=== PATIENT | female | born 1955 | race Asian ===

== ENCOUNTER 2016-11-14 06:57 | Inpatient (IN) | payer SELFPAY ==
[~2016-11-14] VITALS: Ht 157.5 cm; Wt 60.8 kg
[2016-11-14] MEDS ORDERED: SODIUM CHLORIDE 0.9% 1,000 ML IV ONE (08:30)
[2016-11-14] MEDS ORDERED: ONDANSETRON HCL 4MG/2ML VIAL IV STA (08:30)
[2016-11-14] MEDS ORDERED: MORPHINE SULFATE 4 MG/ML CPJ (NOT FOR IM USE) IV STA (08:30)
[2016-11-14 09:09] LABS: EOSINOPHILS % 0.4 % (0.0-5.0); HEMOGLOBIN. 13.9 g/dL (12.0-16.0); LYMPHOCYTES % 9.1 % (20.0-50.0); MEAN CORPUSCULAR HEMOGLOBIN 27.9 pg (28.0-32.0); MEAN CORPUSCULAR VOLUME 84.2 fL (81.0-99.0); MEAN PLATELET VOLUME 6.5 fl (7.4-10.4); MONOCYTES % 2.8 % (2.0-8.0); NEUTROPHILS % 86.7 % (40.0-76.0); PLATELET 388 x1000/uL (130-400); RED BLOOD CELL COUNT 4.99 mill/uL (4.2-5.4); RED CELL DISTRIBUTION WIDTH 13.1 % (11.6-14.6)
[2016-11-14 09:15] LABS: PARTIAL THROMBOPLASTIN TIME 26.3 sec (23.4-31.0)
[2016-11-14 09:22] LABS: CARBON DIOXIDE 29 mEq/L (21-32); CHLORIDE 99 mEq/L (98-107)
[2016-11-14] MEDS ORDERED: PIPERACILLIN/TAZ 3.375G PREMIX 50 ML IV ONE (10:30)
[2016-11-14] MEDS ORDERED: PIPERACILLIN/TAZOBACTAM 3.375GM/50ML PREMIX IV ONE (10:30)
[2016-11-14] MEDS ORDERED: ONDANSETRON HCL 4MG/2ML VIAL IV ONE (11:30)
[2016-11-14] MEDS ORDERED: MORPHINE SULFATE 4 MG/ML CPJ (NOT FOR IM USE) IV ONE (11:30)
[2016-11-14 16:00] VITALS: BP 124/66
[2016-11-14] MEDS ORDERED: AMLO5TAB4 PO (16:23)
[2016-11-14] MEDS ORDERED: LOSA50TA20 PO (16:23)
[2016-11-14] MEDS ORDERED: HYDROMORPHONE HCL/PF 2MG/ML CPJ IM PRN (16:30)
[2016-11-14] MEDS ORDERED: ONDANSETRON HCL 4MG/2ML VIAL IV PRN (16:30)
[2016-11-14 16:34] VITALS: BP 124/66
[2016-11-14] MEDS: AMLODIPINE 5MG TABLET PO SCH (18:38)
[2016-11-14] MEDS ORDERED: HYDROMORPHONE HCL/PF 2MG/ML CPJ IV PRN (19:30)
[2016-11-14 20:00] VITALS: BP 114/64
[2016-11-15] VITALS: BP 116/64
[2016-11-15 04:00] VITALS: BP 118/66
[2016-11-15 08:00] VITALS: BP 126/79
[2016-11-15] MEDS: LOSARTAN POTASSIUM 50 MG TABLET PO SCH (10:25)
[2016-11-15 12:00] VITALS: BP 139/103
[2016-11-15 16:00] VITALS: BP 141/87
[2016-11-15 20:00] VITALS: BP 109/56
[2016-11-15] MEDS: AMLODIPINE 5MG TABLET PO SCH (20:08)
[2016-11-16] VITALS: BP 105/57
[2016-11-16 04:00] VITALS: BP 111/58
[2016-11-16 07:32] LABS: HEMATOCRIT 40.9 % (36.0-48.0); HEMOGLOBIN 13.6 g/dL (12.0-16.0); MEAN CORPUSCULAR HEMOGLOBIN 28.3 pg (28.0-32.0); MEAN CORPUSCULAR VOLUME 84.9 fL (81.0-99.0); PLATELET 367 x1000/uL (130-400); RED BLOOD CELL COUNT 4.81 mill/uL (4.2-5.4); RED CELL DISTRIBUTION WIDTH 13.2 % (11.6-14.6)
[2016-11-16 08:00] VITALS: BP 135/58
[2016-11-16 08:02] LABS: CARBON DIOXIDE 31 mEq/L (21-32); CHLORIDE 104 mEq/L (98-107)
[2016-11-16] MEDS: LOSARTAN POTASSIUM 50 MG TABLET PO SCH (09:30)
[2016-11-16 12:00] VITALS: BP 132/57
== END 2016-11-16 14:25 | disposition home or self-care (01) ==
LOC: ER 07:24 → ENRESERV 13:56 → 6WST 15:44
PROVIDERS: ADMIT Hospitalist; ATTEND Hospitalist
DX: K80.10 Calculus of gallbladder with chronic cholecystitis without obstruction (principal); E87.5 Hyperkalemia; I10 Essential (primary) hypertension; E87.6 Hypokalemia; R74.0 Nonspecific elevation of levels of transaminase and lactic acid dehydrogenase [LDH]
CPT/HCPCS: 36415; 71010; 74181; 76705; 80053; 83690; 85025; 85027; 85610; 85730; 87040; 93005; 96361; 96365; 96375; 96376; 99285; J2270; J2405; J2543; J7030

== ENCOUNTER 2016-12-03 13:01 | Emergency (ER) | payer SELFPAY ==
[~2016-12-03] VITALS: Ht 157.5 cm; Wt 60.0 kg
[~2016-12-03 13:01] MED LIST: AMLO5TAB4 PO; LOSA50TA20 PO
[2016-12-03 17:52] VITALS: BP 131/65
== END 2016-12-03 23:00 | disposition home or self-care (01) ==
LOC: ER 13:37
DX: L03.115 Cellulitis of right lower limb (principal); L30.9 Dermatitis, unspecified; L30.2 Cutaneous autosensitization
CPT/HCPCS: 99283

== ENCOUNTER 2017-09-15 19:09 | Inpatient (IN) | payer OTHER ==
[~2017-09-15] VITALS: Ht 152.4 cm; Wt 62.3 kg
[2017-09-15 21:11] LABS: BASOPHILS % 1.2 % (0.0-2.0); EOSINOPHILS % 2.1 % (0.0-5.0); HEMATOCRIT. 39.4 % (36.0-48.0); LYMPHOCYTES % 28.8 % (20.0-50.0); MEAN CORPUSCULAR HEMOGLOBIN 28.2 pg (28.0-32.0); MEAN CORPUSCULAR VOLUME 85.2 fL (81.0-99.0); MEAN PLATELET VOLUME 6.7 fl (7.4-10.4); NEUTROPHILS % 61.9 % (40.0-76.0); PLATELET 379 x1000/uL (130-400); RED BLOOD CELL COUNT 4.62 mill/uL (4.2-5.4); RED CELL DISTRIBUTION WIDTH 12.8 % (11.6-14.6)
[2017-09-15 21:15] LABS: CHLORIDE 108 mEq/L (98-107)
[2017-09-15 21:16] LABS: PROTHROMBIN TIME 10.1 sec (9.4-11.6)
[2017-09-15] MEDS ORDERED: IOHEXOL-350 100 ML BOTTLE ONE (23:00)
[2017-09-16] VITALS (12 sets, daily range): BP systolic 120–139; BP diastolic 73–90
[2017-09-16] MEDS ORDERED: ASPIRIN 81MG TABLET PO ONE (00:30)
[2017-09-16] MEDS ORDERED: ENOXAPARIN 100MG/ML SYR SUBCUT ONE (00:30)
[2017-09-16] MEDS ORDERED: IPRATROPIUM/ALBUTEROL 0.5-3(2.5)MG/3ML NEB INH PRN (01:45)
[2017-09-16] MEDS ORDERED: MAGNESIUM/ALUMINUM HYDROXIDE/SIMETHICONE 30ML UDC PO PRN (01:45)
[2017-09-16] MEDS ORDERED: GUAIFENESIN 200MG/10ML SUGAR FREE UDC PO PRN (01:45)
[2017-09-16] MEDS ORDERED: ONDANSETRON HCL 4MG/2ML VIAL IV PRN (01:45)
[2017-09-16] MEDS ORDERED: HYDROCODONE/ACETAMINOPHEN 5/325MG TABLET PO PRN (01:45)
[2017-09-16] MEDS ORDERED: ACETAMINOPHEN 650MG/20.3ML UDC GT PRN (01:45)
[2017-09-16] MEDS ORDERED: DOCUSATE SODIUM 100MG CAPSULE PO PRN (01:45)
[2017-09-16] MEDS ORDERED: CLONIDINE 0.1MG TABLET PO PRN (01:45)
[2017-09-16] MEDS ORDERED: DIPHENHYDRAMINE 50MG/ML VIAL IV PRN (01:45)
[2017-09-16] MEDS ORDERED: ACETAMINOPHEN 650MG SUPP PR PRN (01:45)
[2017-09-16] MEDS ORDERED: ACETAMINOPHEN 325MG TABLET PO PRN ×2 (01:45→15:15)
[2017-09-16] MEDS ORDERED: NA PHOS,M-B/NA PHOS,DI-BA ENEMA 118ML PR PRN (01:45)
[2017-09-16] MEDS ORDERED: MORPHINE SULFATE 4 MG/ML CPJ (NOT FOR IM USE) IV PRN (01:45)
[2017-09-16] MEDS ORDERED: SODIUM CHLORIDE 0.9% 1,000 ML IV SCH (05:00)
[2017-09-16] MEDS: SODIUM CHLORIDE 0.9% INJ 3ML FLUSH IVF SCH ×3 (05:38→23:00)
[2017-09-16 06:49] LABS: CLARITY URINE CLEAR (CLEAR); COLOR URINE YELLOW (YELLOW); KETONES URINE NEGATIVE (NEGATIVE); LEUKOCYTE ESTERASE URINE NEGATIVE (NEGATIVE); NITRITE URINE NEGATIVE (NEGATIVE); OCCULT BLOOD URINE NEGATIVE (NEGATIVE); PROTEIN URINE NEGATIVE (NEGATIVE); SPECIFIC GRAVITY URINE 1.064 (1.005-1.030)
[2017-09-16 07:07] LABS: *AMPHETAMINES SCREEN URINE NEGATIVE (NEGATIVE); *BARBITURATES SCREEN URINE NEGATIVE (NEGATIVE); *BENZODIAZEPINES SCREEN URINE NEGATIVE (NEGATIVE); *COCAINE SCREEN URINE NEGATIVE (NEGATIVE)
[2017-09-16 07:09] LABS: CANNABINOID URINE SCREEN NEGATIVE (NEGATIVE); METHADONE URINE SCREEN NEGATIVE (NEGATIVE); OPIATES URINE SCREEN NEGATIVE (NEGATIVE); PHENCYCLIDINE URINE SCREEN NEGATIVE (NEGATIVE)
[2017-09-16] MEDS: ASPIRIN 325MG EC TABLET PO SCH (08:13)
[2017-09-16] MEDS ORDERED: IODIXANOL 320MG/ML 100 ML BOTTLE IV ONE ×2 (11:18→14:20)
[2017-09-16] MEDS ORDERED: LIDOCAINE HCL 1% 20ML VIAL (Pyxis) INJ ONE (11:18)
[2017-09-16 11:49] LABS: BASOPHILS % 0.2 % (0.0-2.0); EOSINOPHILS % 2.9 % (0.0-5.0); HEMATOCRIT. 43.3 % (36.0-48.0); HEMOGLOBIN. 14.4 g/dL (12.0-16.0); LYMPHOCYTES % 33.4 % (20.0-50.0); MEAN CORPUSCULAR HEMOGLOBIN 28.2 pg (28.0-32.0); MEAN PLATELET VOLUME 6.6 fl (7.4-10.4); MONOCYTES % 5.6 % (2.0-8.0); NEUTROPHILS % 57.9 % (40.0-76.0); PLATELET 384 x1000/uL (130-400); RED BLOOD CELL COUNT 5.09 mill/uL (4.2-5.4); RED CELL DISTRIBUTION WIDTH 13.1 % (11.6-14.6)
[2017-09-16 11:57] LABS: PROTHROMBIN TIME 10.5 sec (9.4-11.6)
[2017-09-16 11:59] LABS: CHLORIDE 107 mEq/L (98-107)
[2017-09-16] MEDS ORDERED: ENOXAPARIN 60MG/0.6ML SYR SUBCUT SCH (13:00)
[2017-09-16] MEDS ORDERED: MIDAZOLAM HCL 2 MG/2 ML VIAL ONE ×2 (13:41→14:29)
[2017-09-16] MEDS ORDERED: FENTANYL CITRATE/PF 50MCG/ML 2ML VIAL ONE (13:42)
[2017-09-16] MEDS ORDERED: IOHEXOL-300 100 ML BOTTLE ONE (14:20)
[2017-09-16] MEDS ORDERED: ATROPINE SULFATE 1MG/10ML SYR IV PRN (15:15)
[2017-09-16] MEDS ORDERED: HEPARIN SODIUM 1,000 UNIT/1ML VIAL IV ONE (15:16)
[2017-09-16] MEDS ORDERED: NICARDIPINE 100MCG/ML 10ML VIAL (CATH LAB) IV ONE (15:18)
[2017-09-16] MEDS ORDERED: NITROGLYCERIN 50MCG/ML 10ML VIAL (CATH LAB) IV ONE (15:18)
[2017-09-16] MEDS ORDERED: CLOPIDOGREL 75MG TABLET ONE (15:24)
[2017-09-16 19:29] LABS: CREATINE KINASE MB FRACTION 3.2 ng/mL (0.5-3.6)
[2017-09-16] MEDS ORDERED: ATORVASTATIN CALCIUM 10MG TABLET PO SCH ×2 (21:00)
[2017-09-16] MEDS: SODIUM CHL 0.45% + KCL 20MEQ/L 1,000 ML IV SCH (21:48)
[2017-09-16] MEDS: METOPROLOL TARTRATE 50MG TABLET PO SCH (21:50)
[2017-09-17] VITALS (9 sets, daily range): BP systolic 99–138; BP diastolic 68–88
[2017-09-17] MEDS: SODIUM CHL 0.45% + KCL 20MEQ/L 1,000 ML IV SCH (04:05)
[2017-09-17 06:31] LABS: BASOPHILS % 0.7 % (0.0-2.0); EOSINOPHILS % 3.7 % (0.0-5.0); HEMATOCRIT. 39.1 % (36.0-48.0); HEMOGLOBIN. 13.2 g/dL (12.0-16.0); LYMPHOCYTES % 24.9 % (20.0-50.0); MEAN CORPUSCULAR HEMOGLOBIN 28.3 pg (28.0-32.0); MEAN CORPUSCULAR VOLUME 84.1 fL (81.0-99.0); MEAN PLATELET VOLUME 6.8 fl (7.4-10.4); NEUTROPHILS % 63.7 % (40.0-76.0); PLATELET 360 x1000/uL (130-400); RED BLOOD CELL COUNT 4.65 mill/uL (4.2-5.4); RED CELL DISTRIBUTION WIDTH 13.4 % (11.6-14.6)
[2017-09-17] MEDS: SODIUM CHLORIDE 0.9% INJ 3ML FLUSH IVF SCH (06:31)
[2017-09-17 06:49] LABS: CHLORIDE 106 mEq/L (98-107)
[2017-09-17 07:08] LABS: LDL CHOLESTEROL 178 mg/dL (5-100)
[2017-09-17 07:09] LABS: HDL CHOLESTEROL 41 mg/dL (40-59)
[2017-09-17] MEDS ORDERED: CLOPIDOGREL 75MG TABLET PO SCH (09:00)
[2017-09-17] MEDS: ASPIRIN 325MG EC TABLET PO SCH (09:20)
[2017-09-17] MEDS: METOPROLOL TARTRATE 50MG TABLET PO SCH (09:21)
== END 2017-09-17 12:00 | disposition home or self-care (01) | DRG 247 ==
LOC: ER 19:09 → 3WST 22:35 → EDBEDREQSVC 22:39 → EDBEDREQTM 22:39 → EDBEDREQ 22:39 → ENRESERV 09-16 02:26 → 3WST 09-16 04:30
PROVIDERS: ADMIT Family Medicine; ATTEND Family Medicine
PROC: 4A023N7 Measurement of Cardiac Sampling and Pressure, Left Heart, Percutaneous Approach (ICD-10-PCS; principal; 2017-09-16)
PROC: 027034Z Dilation of Coronary Artery, One Artery with Drug-eluting Intraluminal Device, Percutaneous Approach (ICD-10-PCS; 2017-09-16)
PROC: B2111ZZ Fluoroscopy of Multiple Coronary Arteries using Low Osmolar Contrast (ICD-10-PCS; 2017-09-16)
PROC: B2151ZZ Fluoroscopy of Left Heart using Low Osmolar Contrast (ICD-10-PCS; 2017-09-16)
DX: I21.4 Non-ST elevation (NSTEMI) myocardial infarction (principal); I10 Essential (primary) hypertension; E78.5 Hyperlipidemia, unspecified; I20.0 Unstable angina; Z79.899 Other long term (current) drug therapy; Z82.5 Family history of asthma and other chronic lower respiratory diseases; Z82.49 Family history of ischemic heart disease and other diseases of the circulatory system
CPT/HCPCS: 36415; 71045; 71275; 80048; 80053; 80061; 80305; 81003; 82553; 83036; 83880; 84443; 84484; 85025; 85347; 85610; 92928; 93005; 93306; 93454; 96372; 99291; C1725; C1760; C1769; C1874; C1887; C1893; J1644; J1650; J2250; J3010; J3480; J3490; J7030; Q9967

== ENCOUNTER 2017-09-25 23:00 | Inpatient (IN) | payer OTHER ==
[~2017-09-25] VITALS: Ht 157.5 cm; Wt 62.3 kg
[2017-09-25] MEDS ORDERED: ASPIRIN 81MG TABLET PO ONE (23:30)
[2017-09-25 23:43] LABS: CHLORIDE 109 mEq/L (98-107)
[2017-09-25 23:44] LABS: EOSINOPHILS % 6.6 % (0.0-5.0); HEMOGLOBIN. 12.3 g/dL (12.0-16.0); LYMPHOCYTES % 31.8 % (20.0-50.0); MEAN CORPUSCULAR HEMOGLOBIN 28.3 pg (28.0-32.0); MEAN CORPUSCULAR VOLUME 84.7 fL (81.0-99.0); MEAN PLATELET VOLUME 6.5 fl (7.4-10.4); MONOCYTES % 6.2 % (2.0-8.0); NEUTROPHILS % 54.4 % (40.0-76.0); PARTIAL THROMBOPLASTIN TIME 28.5 sec (23.4-31.0); PLATELET 406 x1000/uL (130-400); RED BLOOD CELL COUNT 4.36 mill/uL (4.2-5.4); RED CELL DISTRIBUTION WIDTH 13.1 % (11.6-14.6)
[2017-09-25 23:54] LABS: CREATINE KINASE MB FRACTION 0.8 ng/mL (0.5-3.6)
[2017-09-26] MEDS ORDERED: LORAZEPAM 2MG/ML CPJ IV ONE (02:30)
[2017-09-26] MEDS ORDERED: LORAZEPAM 2MG/ML CPJ IV SCH (02:35)
[2017-09-26] MEDS ORDERED: ENOXAPARIN 60MG/0.6ML SYR SUBCUT SCH (04:00)
[2017-09-26] MEDS ORDERED: IOHEXOL-350 100 ML BOTTLE ONE (04:02)
[2017-09-26 04:38] VITALS: BP 132/72
[2017-09-26] MEDS ORDERED: MORPHINE SULFATE 4 MG/ML CPJ (NOT FOR IM USE) IV PRN (06:45)
[2017-09-26 08:00] VITALS: BP 127/74
[2017-09-26] MEDS: METOPROLOL TARTRATE 50MG TABLET PO SCH ×2 (08:39→20:26)
[2017-09-26] MEDS: CLOPIDOGREL 75MG TABLET PO SCH ×2 (08:40→10:15)
[2017-09-26] MEDS ORDERED: ASPIRIN 325MG EC TABLET PO SCH (09:00)
[2017-09-26] MEDS ORDERED: CLOP75TA16 PO (11:28)
[2017-09-26] MEDS ORDERED: ASPI-986 PO (11:28)
[2017-09-26] MEDS ORDERED: METO-539 PO (11:28)
[2017-09-26 12:00] VITALS: BP 128/73
[2017-09-26 16:00] VITALS: BP 128/74
[2017-09-26 20:00] VITALS: BP 125/76
[2017-09-26] MEDS: ATORVASTATIN CALCIUM 40MG TABLET PO SCH (21:03)
[2017-09-26 23:17] LABS: CLARITY URINE CLEAR (CLEAR); COLOR URINE YELLOW (YELLOW); KETONES URINE NEGATIVE (NEGATIVE); LEUKOCYTE ESTERASE URINE TRACE (NEGATIVE); NITRITE URINE NEGATIVE (NEGATIVE); OCCULT BLOOD URINE NEGATIVE (NEGATIVE); PROTEIN URINE NEGATIVE (NEGATIVE); SPECIFIC GRAVITY URINE 1.009 (1.005-1.030); UROBILINOGEN URINE 0.2 E.U./dL (0.2-1.0)
[2017-09-27] VITALS: BP 134/89
[2017-09-27 04:00] VITALS: BP 111/71
[2017-09-27 06:36] LABS: BASOPHILS % 0.8 % (0.0-2.0); CHLORIDE 108 mEq/L (98-107); EOSINOPHILS % 5.7 % (0.0-5.0); HEMATOCRIT. 37.4 % (36.0-48.0); HEMOGLOBIN. 12.8 g/dL (12.0-16.0); LYMPHOCYTES % 22.9 % (20.0-50.0); MEAN CORPUSCULAR HEMOGLOBIN 28.9 pg (28.0-32.0); MEAN CORPUSCULAR VOLUME 84.3 fL (81.0-99.0); MEAN PLATELET VOLUME 6.7 fl (7.4-10.4); MONOCYTES % 5.8 % (2.0-8.0); NEUTROPHILS % 64.8 % (40.0-76.0); PLATELET 389 x1000/uL (130-400); RED BLOOD CELL COUNT 4.43 mill/uL (4.2-5.4); RED CELL DISTRIBUTION WIDTH 13.2 % (11.6-14.6)
[2017-09-27] MEDS: ASPIRIN 81MG EC TABLET PO SCH (09:26)
[2017-09-27] MEDS: CLOPIDOGREL 75MG TABLET PO SCH (09:26)
[2017-09-27 09:40] VITALS: BP 125/74
[2017-09-27] MEDS: METOPROLOL TARTRATE 50MG TABLET PO SCH ×2 (10:04→20:39)
[2017-09-27 12:00] VITALS: BP 145/76
[2017-09-27 16:00] VITALS: BP 140/74
[2017-09-27 20:00] VITALS: BP 151/83
[2017-09-27] MEDS: ATORVASTATIN CALCIUM 40MG TABLET PO SCH (20:39)
[2017-09-28] VITALS (21 sets, daily range): BP systolic 100–145; BP diastolic 59–81
[2017-09-28 08:17] LABS: BASOPHILS % 0.9 % (0.0-2.0); EOSINOPHILS % 5.5 % (0.0-5.0); HEMATOCRIT. 41.7 % (36.0-48.0); HEMOGLOBIN. 13.8 g/dL (12.0-16.0); LYMPHOCYTES % 25.9 % (20.0-50.0); MEAN CORPUSCULAR HEMOGLOBIN 28.1 pg (28.0-32.0); MEAN CORPUSCULAR VOLUME 85.1 fL (81.0-99.0); MEAN PLATELET VOLUME 6.8 fl (7.4-10.4); MONOCYTES % 5.1 % (2.0-8.0); NEUTROPHILS % 62.6 % (40.0-76.0); PLATELET 450 x1000/uL (130-400); RED BLOOD CELL COUNT 4.91 mill/uL (4.2-5.4); RED CELL DISTRIBUTION WIDTH 12.7 % (11.6-14.6)
[2017-09-28] MEDS: CLOPIDOGREL 75MG TABLET PO SCH (09:00)
[2017-09-28] MEDS: ASPIRIN 81MG EC TABLET PO SCH (09:00)
[2017-09-28] MEDS ORDERED: LIDOCAINE HCL 1% 20ML VIAL (Pyxis) INJ ONE (09:44)
[2017-09-28] MEDS ORDERED: IODIXANOL 320MG/ML 100 ML BOTTLE IV ONE ×2 (09:44→11:18)
[2017-09-28] MEDS: METOPROLOL TARTRATE 50MG TABLET PO SCH ×2 (09:54→21:00)
[2017-09-28 10:03] LABS: CHLORIDE 107 mEq/L (98-107)
[2017-09-28] MEDS ORDERED: MIDAZOLAM HCL 2 MG/2 ML VIAL ONE (10:20)
[2017-09-28] MEDS ORDERED: FENTANYL CITRATE/PF 50MCG/ML 2ML VIAL ONE (10:21)
[2017-09-28] MEDS ORDERED: IOHEXOL-300 100 ML BOTTLE ONE (10:49)
[2017-09-28] MEDS ORDERED: CLOPIDOGREL 75MG TABLET ONE (10:50)
[2017-09-28] MEDS ORDERED: ASPIRIN 325MG TABLET ONE (11:28)
[2017-09-28] MEDS ORDERED: ONDANSETRON HCL 4MG/2ML VIAL IV PRN (11:45)
[2017-09-28] MEDS ORDERED: ACETAMINOPHEN 325MG TABLET PO PRN (11:45)
[2017-09-28] MEDS ORDERED: ATROPINE SULFATE 1MG/10ML SYR IV PRN (11:45)
[2017-09-28] MEDS ORDERED: SODIUM CHLORIDE 0.45% 1,000 ML IV ONE (13:45)
[2017-09-28] MEDS ORDERED: HEPARIN SODIUM 1,000 UNIT/1ML VIAL IV ONE (14:20)
[2017-09-28] MEDS ORDERED: NITROGLYCERIN 50MCG/ML 10ML VIAL (CATH LAB) IV ONE (14:24)
[2017-09-28] MEDS ORDERED: NICARDIPINE 100MCG/ML 10ML VIAL (CATH LAB) IV ONE (14:24)
[2017-09-28] MEDS: ATORVASTATIN CALCIUM 40MG TABLET PO SCH (21:25)
[2017-09-29] VITALS: BP 98/66
[2017-09-29 02:00] VITALS: BP 100/63
[2017-09-29 04:00] VITALS: BP 125/89
[2017-09-29 06:00] VITALS: BP 152/92
[2017-09-29 08:01] LABS: BASOPHILS % 0.6 % (0.0-2.0); EOSINOPHILS % 5.5 % (0.0-5.0); HEMATOCRIT. 40.4 % (36.0-48.0); HEMOGLOBIN. 13.3 g/dL (12.0-16.0); LYMPHOCYTES % 20.8 % (20.0-50.0); MEAN CORPUSCULAR HEMOGLOBIN 28.2 pg (28.0-32.0); MEAN CORPUSCULAR VOLUME 85.5 fL (81.0-99.0); MEAN PLATELET VOLUME 6.9 fl (7.4-10.4); MONOCYTES % 4.9 % (2.0-8.0); NEUTROPHILS % 68.2 % (40.0-76.0); PLATELET 434 x1000/uL (130-400); RED BLOOD CELL COUNT 4.72 mill/uL (4.2-5.4)
[2017-09-29] MEDS: METOPROLOL TARTRATE 50MG TABLET PO SCH (08:55)
[2017-09-29] MEDS ORDERED: CLOPIDOGREL 75MG TABLET PO SCH (09:00)
[2017-09-29] MEDS ORDERED: ASPIRIN 325MG TABLET PO SCH (09:00)
[2017-09-29 09:59] VITALS: BP 142/84
== END 2017-09-29 10:52 | disposition home or self-care (01) | DRG 247 ==
LOC: EDBEDREQ 09-26 01:42 → EDBEDREQTM 09-26 01:42 → ENRESERV 09-26 02:19 → ER 09-26 04:19 → 6WST 09-26 05:00 → 3WST 09-28 12:21
PROVIDERS: ADMIT Internal Medicine; ATTEND Internal Medicine
PROC: 027135Z Dilation of Coronary Artery, Two Arteries with Two Drug-eluting Intraluminal Devices, Percutaneous Approach (ICD-10-PCS; principal; 2017-09-28)
PROC: 4A023N7 Measurement of Cardiac Sampling and Pressure, Left Heart, Percutaneous Approach (ICD-10-PCS; 2017-09-28)
PROC: B2111ZZ Fluoroscopy of Multiple Coronary Arteries using Low Osmolar Contrast (ICD-10-PCS; 2017-09-28)
DX: I25.110 Atherosclerotic heart disease of native coronary artery with unstable angina pectoris (principal); I11.9 Hypertensive heart disease without heart failure; E87.8 Other disorders of electrolyte and fluid balance, not elsewhere classified; E78.5 Hyperlipidemia, unspecified; E78.00 Pure hypercholesterolemia, unspecified; H91.92 Unspecified hearing loss, left ear; Z95.5 Presence of coronary angioplasty implant and graft; Z79.02 Long term (current) use of antithrombotics/antiplatelets; Z79.82 Long term (current) use of aspirin; Z82.49 Family history of ischemic heart disease and other diseases of the circulatory system; I25.2 Old myocardial infarction; Z98.51 Tubal ligation status; Z79.899 Other long term (current) drug therapy
CPT/HCPCS: 36415; 71045; 71275; 80048; 80053; 80076; 81003; 82553; 83690; 83735; 83880; 84484; 85025; 85347; 85610; 85730; 92928; 93005; 93454; 99285; C1725; C1760; C1769; C1874; C1887; C1893; J1644; J1650; J2060; J2250; J3010; J3490; Q9967

== ENCOUNTER 2020-01-31 12:11 | Emergency (ER) | payer OTHER ==
[~2020-01-31] VITALS: Ht 157.5 cm; Wt 60.0 kg
[~2020-01-31 12:11] MED LIST changes: -AMLO5TAB4 PO; +ASPI-986 PO; +ATOR20TA MT; +ATOR80TA MT; +CLOP75TA4 PO; +LEVO250T2 PO; -LOSA50TA20 PO; +METO-539 PO; +METR250T PO
[2020-01-31 12:45] VITALS: BP 170/92
[2020-01-31 15:26] LABS: BASOPHILS % 1.3 % (0.0-2.0); EOSINOPHILS % 4.6 % (0.0-5.0); HEMATOCRIT. 42.1 % (36.0-48.0); HEMOGLOBIN. 13.9 g/dL (12.0-16.0); LYMPHOCYTES % 32.7 % (20.0-50.0); MEAN CORPUSCULAR HEMOGLOBIN 28.8 pg (28.0-32.0); MEAN CORPUSCULAR VOLUME 87.2 fL (81.0-99.0); MEAN PLATELET VOLUME 6.9 fl (7.4-10.4); MONOCYTES % 5.3 % (2.0-8.0); NEUTROPHILS % 56.1 % (40.0-76.0); PLATELET 332 x1000/uL (130-400); RED BLOOD CELL COUNT 4.83 mill/uL (4.2-5.4)
[2020-01-31 15:33] LABS: CHLORIDE 108 mEq/L (98-107)
[2020-01-31 15:41] LABS: INR 0.9; PROTHROMBIN TIME 9.9 sec (9.6-11.0)
[2020-01-31] MEDS ORDERED: ACETAMINOPHEN 325MG TABLET PO NR (17:00)
[2020-01-31 17:13] LABS: CLARITY URINE CLEAR (CLEAR); COLOR URINE YELLOW (YELLOW); KETONES URINE NEGATIVE (NEGATIVE); LEUKOCYTE ESTERASE URINE NEGATIVE (NEGATIVE); NITRITE URINE NEGATIVE (NEGATIVE); OCCULT BLOOD URINE NEGATIVE (NEGATIVE); PH URINE 5.5 (4.5-8.0); PROTEIN URINE NEGATIVE (NEGATIVE); SPECIFIC GRAVITY URINE 1.018 (1.005-1.030); UROBILINOGEN URINE 0.2 E.U./dL (0.2-1.0)
== END 2020-01-31 18:50 | disposition home or self-care (01) ==
LOC: ER 12:11
DX: M54.9 Dorsalgia, unspecified (principal); I10 Essential (primary) hypertension; E78.00 Pure hypercholesterolemia, unspecified
CPT/HCPCS: 36415; 71101; 80053; 81003; 84484; 85025; 99284